=== PATIENT | female | born 1955 | race Caucasian/White ===

== ENCOUNTER 2016-10-22 15:54 | Inpatient (IN) | payer MEDICARE, MEDICAID ==
--- NOTE | 2016-10-22 18:19 | Emergency Department Record ---
History of Present Illness - General Chief complaint: Weakness Stated complaint: FATIGUE,CONFUSION,SORE JOINTS,VOMITTING, Time Seen by Provider: 10/22/16 18:04 Source: Patient Mode of Arrival: Ambulatory Limitations: No limitations - History of Present Illness Initial comments: 61 yo female presents to ED for evaluation of increased weakness and confusion over the last 24 hours. Daughter at the bedside reports that the patient has been sleeping for almost 24 hours straight. Patient reports a history of chronic abdominal pain, fibromyalgia, and depression symptoms, denies any recent change in medications. Patient denies fevers, chills, cough, abdominal pain symptoms, or urinary symptoms. MD Complaint: Generalized weakness Onset/Timin -: Days(s) Location: Generalized Consistency: Constant Improves with: None Worsens with: None Associated Symptoms: Confusion - [place] Coma Scale Eye Response: (4) Open spontaneously Motor Response: (6) Obeys commands Verbal Response: (5) Oriented [place] Total: 15 - Related Data Home Medications Medication Instructions Recorded Confirmed Last Taken Albuterol Sulfate [Ventolin Hfa] 1 - 2 puff IH QID PRN 10/22/16 10/22/16 Unknown Atorvastatin Calcium 10 mg PO DAILY 10/22/16 10/22/16 Unknown Buspirone HCl [Buspar] 30 mg PO DAILY 10/22/16 10/22/16 Unknown Dicyclomine HCl 20 mg PO TID 10/22/16 10/22/16 Unknown Diphenoxylate HCl/Atropine 1 each PO QID 10/22/16 10/22/16 Unknown [Diphenoxylate-Atrop 2.5-0.025] Diphenoxylate HCl/Atropine 1 each PO QID PRN 10/22/16 10/22/16 Unknown [Diphenoxylate-Atrop 2.5-0.025] Estradiol [Estrace] 0.5 mg PO DAILY 10/22/16 10/22/16 Unknown Fluoxetine HCl 10 mg PO DAILY 10/22/16 10/22/16 Unknown Fluoxetine HCl [Prozac] 40 mg PO DAILY 10/22/16 10/22/16 Unknown Fluticasone/Salmeterol [Advair 1 each IH BID 10/22/16 10/22/16 Unknown 500-50 Diskus] Hydrochlorothiazide 12.5 mg PO DAILY PRN 10/22/16 10/22/16 Unknown Levothyroxine Sodium [Synthroid] 125 mcg PO DAILY 10/22/16 10/22/16 Unknown Montelukast Sodium [Singulair] 10 mg PO QHS 10/22/16 10/22/16 Unknown Pregabalin [Lyrica] 150 mg PO DAILY 10/22/16 10/22/16 Unknown Trazodone HCl 100 mg PO QHS 10/22/16 10/22/16 Unknown Umeclidinium Gary [Incruse 62.5 mcg IH DAILY 10/22/16 10/22/16 Unknown Ellipta] Allergies Allergy/AdvReac Type Severity Reaction Status Date / Time clindamycin Allergy RASH Verified 10/22/16 17:43 erythromycin base Allergy HIVES Verified 10/22/16 17:43 Iodine and Iodide Containing Allergy HYPERSENSIT Verified 10/22/16 17:43 Produc IVITY nitrofurantoin Allergy DIFFICULTY Verified 10/22/16 17:44 [From Macrodantin] BREATHING sulfamethoxazole Allergy DIFFICULTY Verified 10/22/16 17:44 [From Bactrim] BREATHING trimethoprim [From Bactrim] Allergy DIFFICULTY Verified 10/22/16 17:44 BREATHING Travel Screening - Travel/Exposure Within Last 30 Days Have you traveled within the last 30 days?: No - Travel/Exposure Within Last Year Have you traveled outside the [place] in the last year?: No - Additonal Travel Details Have you been exposed to anyone with a communicable illness?: No - Travel Symptoms Symptom Screening: None Review of Systems Constitutional: Reports: Malaise, Weakness. Denies: Chills, Fever, Night sweats Eyes: Denies: Eye discharge, Eye pain ENT: Denies: Congestion, Epistaxis Respiratory: Denies: Cough, Dyspnea Cardiovascular: Denies: Chest pain, Dyspnea on exertion Endocrine: Denies: Fatigue, Heat or cold intolerance Gastrointestinal: Reports: Abdominal pain (chronic per patient). Denies: Vomiting Genitourinary: Denies: Dysuria, Frequency Musculoskeletal: Denies: Back pain Skin: Denies: Bruising, Change in color Neurological: Reports: Confusion. Denies: Abnormal gait, Headache, Numbness Psychiatric: Denies: Anxiety Hematological/Lymphatic: Denies: Anemia, Blood Clots Past Medical History - SOCIAL HISTORY Smoking Status: Never smoker Alcohol Use: None Drug Use: None - RESPIRATORY Hx Respiratory Disorders: Yes Hx COPD: Yes - CARDIOVASCULAR Hx Cardio Disorders: Yes Hx Hypertension: Yes Comment:: high cholesterol - NEURO Hx Neuro Disorders: Yes Hx Seizures: Yes (iodine related) - GI Hx GI Disorders: Yes Hx Diverticulitis: Yes Hx Ulcer: Yes Comment:: colitis - Hx Genitourinary Disorders: No - ENDOCRINE Hx Endocrine Disorders: Yes Hx Diabetes: No Hx Thyroid Disease: Yes - MUSCULOSKELETAL Hx Musculoskeletal Disorders: Yes Hx Arthritis: Yes - PSYCH Hx Psych Problems: Yes Hx Anxiety: Yes - HEMATOLOGY/ONCOLOGY Hx Hematology/Oncology Disorders: Yes Hx Anemia: Yes Family Medical History Any Significant Family History?: No Physical Exam - General General Appearance: Alert, Oriented x3, Cooperative, Moderate distress Limitations: No limitations - Head Head exam: Atraumatic, Normocephalic, Normal inspection Head exam detail: negative: Abrasion, Contusion, Sofia's sign, General tenderness, Hematoma, Laceration - Eye Eye exam: Normal appearance. negative: Conjunctival injection, Periorbital swelling, Periorbital tenderness, Scleral icterus - ENT Ear exam: negative: Auricular hematoma, Auricular trauma Nasal Exam: negative: Active bleeding, Discharge, Dried blood, Foreign body Mouth exam: negative: Drooling, Laceration, Muffled voice, Tongue elevation - Neck Neck exam: Normal inspection. negative: Meningismus, Tenderness - Respiratory Respiratory exam: Normal lung sounds bilaterally. negative: Respiratory distress, Rhonchi, Stridor, Wheezes - Cardiovascular Cardiovascular Exam: Regular rate, Normal rhythm, Normal heart sounds - GI/Abdominal GI/Abdominal exam: Soft. negative: Pulsatile mass, Rebound, Rigid, Tenderness - Rectal Rectal exam: Deferred - exam: Deferred - Extremities Extremities exam: Normal inspection. negative: Calf tenderness, Pedal edema, Tenderness - Back Back exam: Denies: CVA tenderness (R), CVA tenderness (L) - Neurological Neurological exam: Alert, CN II-XII intact, Oriented X3. negative: Motor sensory deficit - Psychiatric Psychiatric exam: Normal affect, Normal mood - Skin Skin exam: Normal color. negative: Abrasion Type of lesion: negative: abrasion Course Vital Signs 10/22/16 17:30 Temperature 98.9 F Pulse Rate 77 Respiratory 16 Rate Blood Pressure 144/73 Pulse Ox 95 - Reevaluation(s) Reevaluation #1: 10/22/16 19:12 Labs reviewed, WBC 18.7 with 85% Neurophils. Potassium 2.6, CO2 34. AST/ALT 122, 125, Alk phos 264. UA is negative for infection. CT of the Abdomen and Pelvis ordered in addition to Acetaminophen level. Reevaluation #2: 10/22/16 19:47 EKG: NSR 67 Normal axis, normal intervals Nonspecific ST chagnes III, AVF, V4-V6 Reevaluation #3: 10/22/16 20:34 CXR: ?RML infiltrate Reevaluation #4: 10/22/16 20:38 Patient and family updaetd on results thus far, awaiting CT imaging to exclude an acute process of the abdomen and pelvis before attributing symptoms to pneumonia. Reevaluation #5: 10/22/16 21:23 CT Abdomen and Pelvis: Limited by oral contrast from previous UGI study, there is dilation of the CBD with distal inflammatory changes, if concern for choledocholithiasis consider MRCP. 10/22/16 21:30 Case was discussed with Dr. Currie, CT findings are unlikely to be acute in nature. Will admit to medicine with treatment for CAP and place a consult for Dr. Waldrop tomorrow to see the patient while in hospital. Will intiate treatment with Rocephin and Zithromax with consult for Dr. Waldrop in AM. Case was discussed with Antonia Funk, will accept admission. 10/23/16 06:51 Medical Decision Making - Lab Data Result diagrams: 10/22/16 18:23 10/23/16 06:07 Disposition Disposition: Admit Clinical Impression: CAP (community acquired pneumonia), Confusion, Chronic abdominal pain, Elevated liver enzymes Disposition: Still a Patient at [facility] Decision to Admit: Admit from ER Decision to Admit Date: 10/22/16 Decision to Admit Time: 21:33 Condition: (2) Stable Time of Disposition: 21:33 Quality - Quality Measures Quality Measures: N/A - Blood Pressure Screening Blood Pressure Classification: Normal BP Reading Systolic Measurement: 104 Diastolic Measurement: 60 Screening for High Blood Pressure: < Normal BP, F/U Not Required > [G8783] Normal BP Follow-up Interventions: No follow-up required
[2016-10-22 18:42] LABS: BASO % 0.2 % (0-6); EOS % 0.8 % (0-6); HEMATOCRIT 36.1 % (35.0-47.0); HEMOGLOBIN 12.4 gm/dl (11.6-16.0); LYMPH % 8.5 % (16-45); MEAN CORPUSCULAR HEMOGLOBIN 30.2 pg (27-33); MEAN CORPUSCULAR HGB CONC 34.3 g/dl (32-36); MEAN PLATELET VOLUME 10.3 fl (7.4-10.4); MONO % 3.4 % (0-9); PLATELET COUNT 264 K/uL (130-400); RED CELL DISTRIBUTION WIDTH 14.5 % (11.5-14.5); WHITE BLOOD COUNT W/O DIFF 18.7 K/uL (4.2-12.2)
[2016-10-22 18:54] LABS: AMMONIA 11.8 umol/L (9-30); LACTIC ACID 1.4 mmol/L (0.7-2.1)
[2016-10-22 18:59] LABS: ALB/GLOB RATIO 1.2 (1.1-1.8); AST/SGOT 122 U/L (14-36); CREATININE 0.9 mg/dL (0.52-1.04); EST GLOMERULAR FILTRATION RATE > 60 ml/min; GLUCOSE,RANDOM 108 mg/dL (70-110); TOTAL PROTEIN 7.3 gm/dL (6.3-8.2)
[2016-10-22 19:00] LABS: ALKALINE PHOSPHATASE 264 U/L (38-126); ALT/SGPT 125 U/L (9-52); BLOOD UREA NITROGEN 9 mg/dL (7-17); CREATINE PHOSPHOKINASE 73 U/L (30-135)
[2016-10-22 19:05] LABS: URINE APPEARANCE SL CLOUDY; URINE BILIRUBIN NEGATIVE (NEGATIVE); URINE BLOOD NEGATIVE (NEGATIVE); URINE COLOR YELLOW; URINE GLUCOSE (UA) NEGATIVE (NEGATIVE); URINE KETONE NEGATIVE (NEGATIVE); URINE LEUKOCYTE ESTERASE NEGATIVE (NEGATIVE); URINE NITRITE NEGATIVE (NEGATIVE); URINE PROTEIN NEGATIVE (NEGATIVE); URINE UROBILINOGEN 0.2 E.U./dL (0.20 - 1.00)
[2016-10-22 19:10] LABS: CKMB 0.6 ug/L (0-6)
[2016-10-22 19:11] LABS: TROPONIN I < 0.012 ng/mL (0.00-0.034)
[2016-10-22 19:25] LABS: THYROID STIMULATING HORMONE 0.11 uIU/ml (0.465-4.68)
[2016-10-22] MEDS ORDERED: KETOROLAC 30 MG/ML VIAL IVP ONE (20:39)
[2016-10-22] MEDS ORDERED: 0.9 % SODIUM CHLORIDE 1000ML 1,000 ML IV SCH (20:45)
[2016-10-22] MEDS ORDERED: CEFTRIAXONE SODIUM 1 GM in 0.9 % SODIUM CHLORIDE 100ML 100 ML IVPB ONE (21:33)
[2016-10-22] MEDS ORDERED: AZITHROMYCIN 500 MG in 0.9 % SODIUM CHLORIDE 250ML 250 ML IVPB ONE (21:33)
[2016-10-22] MEDS ORDERED: MAGNESIUM SULFATE 16 MEQ in 0.9 % SODIUM CHLORIDE 100ML 100 ML IV ONE (22:34)
[2016-10-22] MEDS ORDERED: SOD CHLOR 0.9% WITH KCL 40MEQ 40 MEQ/1,000 ML IV.SOLN IV ONE (22:34)
[2016-10-22] MEDS: 0.9 % SODIUM CHLORIDE 1000ML 1,000 ML IV PRN (22:35)
[2016-10-22] MEDS ORDERED: MAGNESIUM SULFATE 16 MEQ in 0.9 % SODIUM CHLORIDE 100ML 100 ML IV SCH (23:15)
[2016-10-23 06:29] LABS: ALB/GLOB RATIO 1.1 (1.1-1.8); ALBUMIN 3.2 gm/dL (3.5-5.0); ALKALINE PHOSPHATASE 208 U/L (38-126); ALT/SGPT 91 U/L (9-52); AST/SGOT 71 U/L (14-36); BILIRUBIN,TOTAL 0.85 mg/dL (0.2-1.3); BLOOD UREA NITROGEN 8 mg/dL (7-17); CREATININE 0.8 mg/dL (0.52-1.04); EST GLOMERULAR FILTRATION RATE > 60 ml/min; GLUCOSE,RANDOM 99 mg/dL (70-110); TOTAL PROTEIN 6.2 gm/dL (6.3-8.2)
[2016-10-23] MEDS ORDERED: ACETAMINOPHEN 500 MG TABLET PO PRN (07:05)
--- NOTE | 2016-10-23 08:15 | RADIOLOGY REPORT ---
EXAM: CHEST, TWO VIEWS HISTORY: PATIENT HAS COUGH, VERTIGO, AND SORE THROAT TIMES TWO DAYS. TECHNIQUE: Two views of the chest were provided without comparison examinations. FINDINGS: The cardiomediastinal silhouette is within normal limits for size and contour. The deepa appear unremarkable. Within the right middle lobe, there are findings suspicious for subsegmental atelectasis and/or infiltrate. No pleural effusions are identified. No pneumothorax is noted. Contrast is noted within the large bowel. Clinical correlation for recent contrasted studies recommended. IMPRESSION: FINDINGS SUSPICIOUS FOR RIGHT MIDDLE LOBE SUBSEGMENTAL ATELECTASIS AND/OR INFILTRATE. FOLLOW-UP PA AND LATERAL VIEWS OF THE CHEST CAN BE OBTAINED UNTIL RESOLUTION OF FINDINGS. JOB NUMBER: [id number] MTDD
--- NOTE | 2016-10-23 08:19 | CT SCAN REPORT ---
EXAM: CT SCAN OF THE HEAD WITHOUT CONTRAST HISTORY: PATIENT HAS VERTIGO, SORE THROAT, AND WEAKNESS. TECHNIQUE: Serial axial CT scan of the head was performed at 2.5 mm intervals from the base of the skull to the apex without the use of intravenous contrast. Sagittal and coronal reconstructions are provided. No comparison CT's are available. FINDINGS: Mild parenchymal volume loss is noted. There is no mass or mass effect. The romero and white differentiation is within normal limits. There is no CT evidence of intra or extraaxial fluid collection to suggest bleeding. Bone windows demonstrate no CT evidence of a fracture or dislocation of the skull. The paranasal sinuses are unremarkable. IMPRESSION: NO CT EVIDENCE OF AN ACUTE INTRACRANIAL PROCESS. JOB NUMBER: [id number] MTDD
--- NOTE | 2016-10-23 08:34 | CT SCAN REPORT ---
EXAM: CT SCAN OF THE ABDOMEN AND PELVIS HISTORY: PATIENT HAS LOWER ABDOMINAL PAIN AND BLOATING. TECHNIQUE: Serial axial CT scan of the abdomen and pelvis was performed at 3.75 mm intervals from the dome of the diaphragm down to the pubic symphysis without the use of intravenous contrast. There is a significant amount of barium contrast identified within the large bowel which is from a recent upper GI examination. This barium contrast creates significant streak artifact which renders the examination close to nondiagnostic. No comparison CT's are available. FINDINGS: The lung windows of the lung bases demonstrate right middle lobe and right lower lobe linear subsegmental atelectasis and/or infiltrate. These findings may be the result of developing pneumonia. Follow-up PA and lateral views of the chest can be obtained until resolution of findings. The visualized heart size and contour is within normal limits. Small hiatal hernia is noted. Within the limits of the examination the visualized liver, spleen, pancreas, and bilateral adrenal glands are unremarkable. The gallbladder is not visualized. Postoperative changes within the gallbladder fossa are identified. The common bile duct measures approximately 12 mm in diameter in the distal aspect. There is questionable fat stranding identified surrounding the distal aspect of the common bile duct suggesting possible inflammatory process. The upper limits of normal for a post cholecystectomy patient for the common bile duct is approximately 11 mm. If there is further clinical concern then MRCP examination can be obtained for further evaluation. Within the limits of the examination there is no gross CT evidence of hydronephrosis or hydroureter. No obvious renal calculi are noted. The contour and caliber of the noncontrasted abdominal aorta is within normal limits. No gross retroperitoneal lymphadenopathy is noted. Within the limits of the examination there is no gross obvious bowel obstruction. No obvious free intraperitoneal fluid is noted. The urinary bladder is unremarkable. The uterus is absent. Bone windows demonstrate no CT evidence of a fracture or dislocation of the visualized osseous structures of the abdomen and pelvis. IMPRESSION: 1. A VERY LIMITED EXAMINATION DUE TO STREAK ARTIFACT FROM THE PATIENT'S BARIUM CONTRAST IN THE COLON. WITHIN THE LIMITS OF THE EXAMINATION THERE IS A QUESTIONABLE INFLAMMATORY PROCESS SURROUNDING THE DISTAL COMMON BILE DUCT WITH MILD DISTENTION. IF THERE IS CLINICAL CONCERN FOR CHOLEDOCHOLITHIASIS THEN AN MRCP EXAMINATION CAN BE OBTAINED FOR FURTHER EVALUATION. 2. NO OTHER OBVIOUS ACUTE INTRAABDOMINAL PROCESS IS NOTED. IF THERE IS FURTHER CLINICAL CONCERN THEN A REPEAT CT SCAN OF THE ABDOMEN AND PELVIC CAN BE OBTAINED ONCE THE BARIUM CONTRAST HAS RESOLVED. JOB NUMBER: [id number] MTDD
[2016-10-23] MEDS ORDERED: POTASSIUM CHLORIDE 20 MEQ TABLET PO ONE ×2 (09:43→09:51)
[2016-10-23] MEDS ORDERED: SOD CHLOR 0.9% WITH KCL 40MEQ 40 MEQ/1,000 ML IV.SOLN IV ONE (09:51)
[2016-10-23] MEDS: HYDROCODONE/APAP 10/325 TABLET PO PRN ×2 (11:05→20:25)
--- NOTE | 2016-10-23 13:39 | History & Physical ---
History of Present Illness - Date of Service Date of Service for History & Physical: 10/23/16 - History of Present Illness Admitting Diagnosis: CAP. Confusion. Elevated Liver Enzymes. Chronic Abdominal pain History of Present Illness: 61 y/o female with 24 hour history of increased weakness, confusion, and excessive sleepiness admitted for community-acquired pneumonia, confusion, chronic abdominal pain, elevated liver enzymes. 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 Prior to arrival had a 3-4 day history of vomiting and excessive diarrhea leading up to 24 hours prior to arrival to ED when she was brought in for sleeping for 24 hours straight, increased confusion and weakness. Patient also reports hx chronic abdominal pain, fibromyalgia, depression. She denies any fevers, cough, urinary symptoms. Reports she sees pulmonolgist Dr Vergara in [place] , last visit was 2 weeks ago where she had a " breathing test" which resulted in no changes in her breathing. While in the ED WBC 18,7, neutrophils 85%. Potassium 2.6, CO2 34. AST/ALT 122, 125, alk phos 264. TSH 0.11. Protein and albumin low. Acetaminophen < 10.0. U/A negative for infection. SPO@ 92% RA. EKG NSR. CXR possible RML infiltrate. CT abdomen/pelvis with dilation CBD, distal inflammatory changes. case was discussed with Dr Currie by ED attending and will plan on consulting Dr Waldrop in the am. CT head negative for acute intracranial process. Was afebrile upon arrival Laboratory Results WBC 18.7 K/uL (4.2-12.2) H 10/22/16 18:23 RBC 4.10 M/uL (3.80-5.40) 10/22/16 18:23 Hgb 12.4 gm/dl (11.6-16.0) 10/22/16 18: Hct 36.1 % (35.0-47.0) 10/22/16 18: MCV 88.0 fl (81-97) 10/22/16 18: MCH 30.2 pg (27-33) 10/22/16 18: MCHC 34.3 g/dl (32-36) 10/22/16 18: RDW 14.5 % (11.5-14.5) 10/22/16 18:23 Plt Count 264 K/uL (130-400) 10/22/16 18:23 MPV 10.3 fl (7.4-10.4) 10/22/16 18:23 Neutrophils % 85.0 % (47-80) H 10/22/16 18:23 Band Neutrophils % 0.0 % (0-5) 10/22/16 18:23 Lymphocytes % 8.5 % (16-45) L 10/22/16 18:23 Monocytes % 3.4 % (0-9) 10/22/16 18:23 Eosinophils % 0.8 % (0-6) 10/22/16 18:23 Basophils % 0.2 % (0-6) 10/22/16 18:23 Lymphocytes 11.0 % (16-45) L 10/22/16 18:23 Monocytes 2.0 % (0-9) 10/22/16 18:23 Basophils 0.0 % (0-6) 10/22/16 18:23 Eosinophil Count 2.0 % (0-6) 10/22/16 18:23 Sodium 140 mmol/L (136-145) 10/23/16 06:07 Potassium 2.8 mmol/L (3.5-5.1) L 10/23/16 06:07 Chloride 104 mmol/L (98-107) 10/23/16 06:07 Carbon Dioxide 30.0 mmol/L (22-30) 10/23/16 06:07 Anion Gap 6.0 (7-16) L 10/23/16 06:07 BUN 8 mg/dL (7-17) 10/23/16 06:07 Creatinine 0.8 mg/dL (0.52-1.04) 10/23/16 06:07 Estimated GFR > 60 ml/min 10/23/16 06:07 Random Glucose 99 mg/dL (70-110) 10/23/16 06:07 Lactic Acid 1.4 mmol/L (0.7-2.1) 10/22/16 18:23 Calcium 7.7 mg/dL (8.5-10.1) L 10/23/16 06:07 Total Bilirubin 0.85 mg/dL (0.2-1.3) 10/23/16 06:07 AST 71 U/L (14-36) H 10/23/16 06:07 ALT 91 U/L (9-52) H 10/23/16 06:07 Alkaline Phosphatase 208 U/L (38-126) H 10/23/16 06:07 Ammonia 11.8 umol/L (9-30) 10/22/16 18:23 Creatine Kinase 73 U/L (30-135) 10/22/16 18:23 CK-MB (CK-2) 0.6 ug/L (0-6) 10/22/16 18:23 Troponin I < 0.012 ng/mL (0.00-0.034) 10/22/16 18:23 Total Protein 6.2 gm/dL (6.3-8.2) L 10/23/16 06:07 Albumin 3.2 gm/dL (3.5-5.0) L 10/23/16 06:07 Globulin 3.0 gm/dL (1.4-4.8) 10/23/16 06:07 Albumin/Globulin Ratio 1.1 (1.1-1.8) 10/23/16 06:07 TSH 0.11 uIU/ml (0.465-4.68) L 10/22/16 18:23 Urine Color Yellow 10/22/16 19:03 Urine Appearance Sl cloudy 10/22/16 19:03 Urine pH 7.0 (5.0-8.0) 10/22/16 19:03 Ur Specific [place] <= 1.005 (1.002-1.030) 10/22/16 19:03 Urine Protein Negative (NEGATIVE) 10/22/16 19:03 Urine Glucose (UA) Negative (NEGATIVE) 10/22/16 19:03 Urine Ketones Negative (NEGATIVE) 10/22/16 19:03 Urine Blood Negative (NEGATIVE) 10/22/16 19:03 Urine Nitrite Negative (NEGATIVE) 10/22/16 19:03 Urine Bilirubin Negative (NEGATIVE) 10/22/16 19:03 Urine Urobilinogen 0.2 E.U./dL (0.20 - 1.00) 10/22/16 19:03 Ur Leukocyte Esterase Negative (NEGATIVE) 10/22/16 19:03 Acetaminophen < 10.0 ug/mL (10.0-30.0) L 10/22/16 16:45 10/23/16- resting in bed comfortably, A&O x3 but lethargic. Denies NIKITA, abdominal pain, chills. Does report she feels much better than she has in the last several days. Denies nausea, vomiting, diarrhea since admission. Reports she usually gets pneumonia twice a year PCP: Dr Gonzalez Housekeeping Director: Dr Vergara out of [place] Travel Screening - Travel/Exposure Within Last 30 Days Have you traveled within the last 30 days?: No - Travel/Exposure Within Last Year Have you traveled outside the [place] in the last year?: No - Additonal Travel Details Have you been exposed to anyone with a communicable illness?: No - Travel Symptoms Symptom Screening: None Review of Systems Constitutional: Reports: Malaise, Weakness. Denies: Chills, Fever, Night sweats Eyes: Denies: Eye discharge, Eye pain ENT: Denies: Congestion, Epistaxis Respiratory: Denies: Cough, Dyspnea Cardiovascular: Denies: Chest pain, Dyspnea on exertion Endocrine: Denies: Fatigue, Heat or cold intolerance Gastrointestinal: Reports: Abdominal pain (chronic per patient). Denies: Vomiting Genitourinary: Denies: Dysuria, Frequency Musculoskeletal: Denies: Back pain Skin: Denies: Bruising, Change in color Neurological: Reports: Confusion. Denies: Abnormal gait, Headache, Numbness Psychiatric: Denies: Anxiety Hematological/Lymphatic: Denies: Anemia, Blood Clots Past Medical History - SOCIAL HISTORY Smoking Status: Never smoker Alcohol Use: None Drug Use: None - RESPIRATORY Hx Respiratory Disorders: Yes Hx COPD: Yes - CARDIOVASCULAR Hx Cardio Disorders: Yes Hx Hypertension: Yes Comment:: high cholesterol - NEURO Hx Neuro Disorders: Yes Hx Seizures: Yes (iodine related) - GI Hx GI Disorders: Yes Hx Diverticulitis: Yes Hx Ulcer: Yes Comment:: colitis - Hx Genitourinary Disorders: No - ENDOCRINE Hx Endocrine Disorders: Yes Hx Diabetes: No Hx Thyroid Disease: Yes - MUSCULOSKELETAL Hx Musculoskeletal Disorders: Yes Hx Arthritis: Yes - PSYCH Hx Psych Problems: Yes Hx Anxiety: Yes - HEMATOLOGY/ONCOLOGY Hx Hematology/Oncology Disorders: Yes Hx Anemia: Yes Family Medical History Any Significant Family History?: No H&P Meds/Allergies - Allergies Allergies: Allergies Allergy/AdvReac Type Severity Reaction Status Date / Time clindamycin Allergy RASH Verified 10/22/16 17:43 erythromycin base Allergy HIVES Verified 10/22/16 17:43 Iodine and Iodide Containing Allergy HYPERSENSIT Verified 10/22/16 17:43 Produc IVITY nitrofurantoin Allergy DIFFICULTY Verified 10/22/16 17:44 [From Macrodantin] BREATHING sulfamethoxazole Allergy DIFFICULTY Verified 10/22/16 17:44 [From Bactrim] BREATHING trimethoprim [From Bactrim] Allergy DIFFICULTY Verified 10/22/16 17:44 BREATHING - Home Medications Home Medications Medication Instructions Recorded Confirmed Last Taken Albuterol Sulfate [Ventolin Hfa] 1 - 2 puff IH QID PRN 10/22/16 10/22/16 Unknown Atorvastatin Calcium 10 mg PO DAILY 10/22/16 10/22/16 Unknown Buspirone HCl [Buspar] 30 mg PO DAILY 10/22/16 10/22/16 Unknown Dicyclomine HCl 20 mg PO TID 10/22/16 10/22/16 Unknown Diphenoxylate HCl/Atropine 1 each PO QID 10/22/16 10/22/16 Unknown [Diphenoxylate-Atrop 2.5-0.025] Diphenoxylate HCl/Atropine 1 each PO QID PRN 10/22/16 10/22/16 Unknown [Diphenoxylate-Atrop 2.5-0.025] Estradiol [Estrace] 0.5 mg PO DAILY 10/22/16 10/22/16 Unknown Fluoxetine HCl 10 mg PO DAILY 10/22/16 10/22/16 Unknown Fluoxetine HCl [Prozac] 40 mg PO DAILY 10/22/16 10/22/16 Unknown Fluticasone/Salmeterol [Advair 1 each IH BID 10/22/16 10/22/16 Unknown 500-50 Diskus] Hydrochlorothiazide 12.5 mg PO DAILY PRN 10/22/16 10/22/16 Unknown Levothyroxine Sodium [Synthroid] 125 mcg PO DAILY 10/22/16 10/22/16 Unknown Montelukast Sodium [Singulair] 10 mg PO QHS 10/22/16 10/22/16 Unknown Pregabalin [Lyrica] 150 mg PO DAILY 10/22/16 10/22/16 Unknown Trazodone HCl 100 mg PO QHS 10/22/16 10/22/16 Unknown Umeclidinium [place] [Incruse 62.5 mcg IH DAILY 10/22/16 10/22/16 Unknown Ellipta] - Active Medications Active Medications: Current Medications Acetaminophen (Tylenol 500mg Tab) 1,000 mg PO Q6H PRN PRN Reason: Pain - Moderate (5-7) Last Admin: 10/23/16 07:18 Dose: 1,000 mg Hydrocodone Bitart/Acetaminophen ([place] 10mg/325mg) 1 each PO Q6H PRN PRN Reason: Pain - Moderate (5-7) Last Admin: 10/23/16 11:05 Dose: 1 each Sodium Chloride () 1,000 mls @ 125 mls/hr IV .Q8H PRN PRN Reason: LARGE VOLUME IV Last Infusion: 10/23/16 00:30 Dose: Infused Azithromycin 500 mg/ Sodium (Chloride) 250 mls @ 250 mls/hr IVPB Q24H SANDEEP Stop: 10/28/16 21:01 Ceftriaxone Sodium 1 gm/ (Sodium Chloride) 100 mls @ 100 mls/hr IVPB Q24H SANDEEP Stop: 10/28/16 22:01 Magnesium Sulfate 16 meq/ (Sodium Chloride) 104 mls @ 100 mls/hr IV NOW SANDEEP Last Admin: 10/22/16 23:39 Dose: 100 mls/hr Potassium Chloride/Sodium Chloride (Potassium Chl 40meq/) 40 meq in 1,000 mls @ 100 mls/hr IV NOW ONE Stop: 10/23/16 19:50 Last Admin: 10/23/16 09:57 Dose: 100 mls/hr Physical Exam - Vital Signs Vital Signs: Vital Signs - Last 24 Hrs Temp Pulse Pulse Resp BP BP Pulse Ox 10/23/16 10:00 97.3 F L 64 16 131/70 95 10/23/16 09:00 64 16 10/23/16 06:00 98.8 F 69 16 138/70 92 L 10/23/16 02:08 98.6 F 63 18 120/60 92 L 10/22/16 22:34 97.9 F 68 18 139/88 97 10/22/16 22:33 98.6 F 64 18 104/60 94 L - General General Appearance: Alert, Oriented x3, Cooperative Limitations: No limitations, Other (lethargic but easily arousable) - Head Head exam: Atraumatic, Normocephalic, Normal inspection Head exam detail: negative: Abrasion, Contusion, Sofia's sign, General tenderness, Hematoma, Laceration - Eye Eye exam: Normal appearance. negative: Conjunctival injection, Periorbital swelling, Periorbital tenderness, Scleral icterus - ENT Ear exam: negative: Auricular hematoma, Auricular trauma Nasal Exam: negative: Active bleeding, Discharge, Dried blood, Foreign body Mouth exam: negative: Drooling, Laceration, Muffled voice, Tongue elevation - Neck Neck exam: Normal inspection. negative: Meningismus, Tenderness - Respiratory Respiratory exam: Decreased breath sounds. negative: Respiratory distress, Rhonchi, Stridor, Wheezes (right lower lobe) - Cardiovascular Cardiovascular Exam: Regular rate, Normal rhythm, Normal heart sounds Peripheral Pulses: 2+: Dorsalis Pedis (R) - GI/Abdominal GI/Abdominal exam: Soft, Normal bowel sounds. negative: Pulsatile mass, Rebound , Rigid, Tenderness - Rectal Rectal exam: Deferred - exam: Deferred - Extremities Extremities exam: Normal inspection. negative: Calf tenderness, Pedal edema, Tenderness - Back Back exam: Denies: CVA tenderness (R), CVA tenderness (L) - Neurological Neurological exam: Alert, CN II-XII intact, Oriented X3. negative: Motor sensory deficit - Psychiatric Psychiatric exam: Normal affect, Normal mood - Skin Skin exam: Normal color. negative: Abrasion Type of lesion: negative: abrasion Results - Labs Result Diagrams: 10/22/16 18:23 10/23/16 06:07 Labs Last 24 Hours: Laboratory Results - last 24 hr 10/23/16 06:07 Sodium 140 Potassium 2.8 L Chloride 104 Carbon Dioxide 30.0 Anion Gap 6.0 L BUN 8 Creatinine 0.8 Estimated GFR > 60 Random Glucose 99 Calcium 7.7 L Total Bilirubin 0.85 AST 71 H ALT 91 H Alkaline Phosphatase 208 H Total Protein 6.2 L Albumin 3.2 L Globulin 3.0 Albumin/Globulin Ratio 1.1 - Imaging and Cardiology CT scan - abdomen Status: Report reviewed (1- limited due to streak artifact from previous barium contrast study, 2- questionable inflammatory process surrounding distal common bile duct with mild destention) CT scan - head Status: Report reviewed (no acute intracranial process) Chest x-ray Status: Pending (findings suspicious for RML atelectasis and/or pneumonia) VTE H&P Assessment - Risk for VTE Risk for VTE: Yes Risk Level: Moderate Risk Assessment Date: 10/23/16 Risk Assessment Time: 13:49 VTE Orders Placed or Will Be Placed: Yes Plan - Inpatient Certification Inpatient Certification: Admit to inpatient care: Based on my medical assessment, after consideration of patient's risk factors (age, co-morbidities and patient presenting symptoms and acuity), I expect that this patient will remain in the hospital greater than or equal to two midnights and that the services needed warrant inpatient care because: Patient Risk Factors: [] Estimated length of stay: [] The patient may reasonably be expected to be discharged or transferred to a hospital within 96 hours after admission to [facility]. Services needed: [] Post hospital care (if known): [] I certify that my determination is in accordance with my understanding of Medicare requirements for reasonable and necessary inpatient services. - Detailed Diagnosis and Plan (1) CAP (community acquired pneumonia) Current Visit: Yes Status: Acute Base Code: J18.9 - PNEUMONIA, UNSPECIFIED ORGANISM Comment: 61 y/o female admitted with RML CA-pneumonia. Known history COPD. In ED WBC 18.7, neutrophils 85%. Potassium 2.6 up to 2.8 this am after initiation of 0.9% NS with 40mEq potassium near the end of 1L bag. Is asymptomatic, telemetry remains NSR. Azithromycin 500mg and Rocephin 1gm initiated in ED - Azithromycin 250mg QD - Rocephin 1gm QD - Duoneb Q 4 hours WA - Albuterol Q 2 hrs PRN - Solumedrol 60mg QD - ABGs today to assess CO2 status and continued lethargy - CBC/CMP in am (2) Hypokalemia Current Visit: Yes Status: Acute Base Code: E87.6 - HYPOKALEMIA Comment: - Potassium 2.6 in ED, 2.8 this am. Likely due to GI loss. - K-dur 20mEq now - continue 0.9% NS with 40mEq potassium at 100ml/hr - recheck serum potassium 1500 today - Plan on converting to oral supplementation after 1500 draw (3) Chronic abdominal pain Current Visit: Yes Status: Acute Base Code: R10.9 - UNSPECIFIED ABDOMINAL PAIN; G89.29 - OTHER CHRONIC PAIN Comment: 10/23/16- chronic abdominal pain. CT abdomen/pelvis with CBD dilation and inflammation. Limited view due to recent contrast from barium study. Liver enzymes elevated, acetaminophen level < 10.0. - Dr Waldrop consult today- no new changes, follow up as outpatient - Repeat CMP in am - abdominal pain may be associated with pneumonia (4) Confusion Current Visit: Yes Status: Acute Base Code: R41.0 - DISORIENTATION, UNSPECIFIED Comment: 10/23/16- confustion resolved. Likely etology infectious in nature. Santosh check ABG r/o CO2 retention. Ammonia level normal in ED (5) Elevated liver enzymes Current Visit: Yes Status: Acute Base Code: R74.8 - ABNORMAL LEVELS OF OTHER SERUM ENZYMES Comment: 10/23/16- CT abdomen/pelvis complete. CBD dilation and inflammatoin. Dr Waldrop consulted with no new recommendations. Will need to follow up with PCP after discharge. (6) Full code status Current Visit: Yes Status: Acute Base Code: Z78.9 - OTHER SPECIFIED HEALTH STATUS Comment: 10/23/16- will remain full code during this hospitalization (7) DVT prophylaxis Current Visit: Yes Status: Acute Base Code: [id number] - Comment: 10/23/16- lovenox 40mg QD, nursing to encourage frequent ambulation
[2016-10-23] MEDS ORDERED: ALBUTEROL SULFATE (0.083%) 2.5 MG/3 ML NEB INH PRN (13:40)
[2016-10-23] MEDS ORDERED: METHYLPREDNISOLONE PF 125MG/VIAL IVP SCH (13:45)
[2016-10-23 14:10] LABS: ARTERIAL BLD GAS O2 SATURATION 97.5 % (95-98); ARTERIAL BLOOD GAS BASE EXCESS 1.9 mmol/L (-2 - 3); ARTERIAL BLOOD GAS HCO3 25.1 mmol/L (18-23); ARTERIAL BLOOD GAS PCO2 36.1 mmHg (35-48); ARTERIAL BLOOD GAS pH 7.46 (7.35-7.45); CARBOXYHEMOGLOBIN 1.4 % (0-1.5); METHEMOGLOBIN 0.1 % (0.0-1.5); TOTAL HEMOGLOBIN 12.4 g/dl (11.6-16)
[2016-10-23 14:13] LABS: ALLEN TEST PASS
[2016-10-23] MEDS: IPRATROPIUM/ALBUTEROL (0.5MG/3MG) NEB INH SCH ×3 (14:36→21:16)
[2016-10-23] MEDS ORDERED: HYDROCHLOROTHIAZIDE 12.5 MG CAPSULE PO PRN (15:18)
[2016-10-23] MEDS ORDERED: DICYCLOMINE HCL 10 MG CAPSULE PO PRN (15:18)
[2016-10-23] MEDS ORDERED: PREGABALIN (LYRICA) 100MG CAPSULE PO ONE (15:38)
[2016-10-23] MEDS: BUSPIRONE 5 MG TABLET PO SCH (15:40)
[2016-10-23] MEDS: PREGABALIN (LYRICA) 100MG CAPSULE PO SCH (15:42)
[2016-10-23] MEDS: PREGABALIN 50 MG CAPSULE PO SCH (15:42)
[2016-10-23] MEDS: FLUOXETINE HCL 20 MG CAPSULE PO SCH (15:44)
[2016-10-23] MEDS: FLUOXETINE HCL 10 MG CAPSULE PO SCH (15:45)
[2016-10-23] MEDS ORDERED: 0.9 % SODIUM CHLORIDE 1000ML 1,000 ML IV PRN (16:56)
[2016-10-23] MEDS ORDERED: AZITHROMYCIN 500 MG in 0.9 % SODIUM CHLORIDE 250ML 250 ML IVPB SCH (21:00)
[2016-10-23] MEDS ORDERED: ATORVASTATIN 20 MG TABLET PO SCH (22:00)
[2016-10-23] MEDS ORDERED: CEFTRIAXONE SODIUM 1 GM in 0.9 % SODIUM CHLORIDE 100ML 100 ML IVPB SCH (22:00)
[2016-10-23] MEDS ORDERED: MONTELUKAST SODIUM 10MG TABLET PO SCH (22:00)
[2016-10-23] MEDS ORDERED: TRAZODONE 50 MG TABLET PO SCH (22:00)
[2016-10-23] MEDS: POTASSIUM CHLORIDE 10 MEQ TAB PO SCH (22:02)
[2016-10-24] MEDS: HYDROCODONE/APAP 10/325 TABLET PO PRN (02:54)
[2016-10-24] MEDS: 0.9 % SODIUM CHLORIDE 1000ML 1,000 ML IV PRN (05:00)
[2016-10-24] MEDS: IPRATROPIUM/ALBUTEROL (0.5MG/3MG) NEB INH SCH ×3 (06:12→14:12)
[2016-10-24 06:43] LABS: HEMOGLOBIN 11.3 gm/dl (11.6-16.0); MEAN CELL VOLUME 90.2 fl (81-97); MEAN CORPUSCULAR HGB CONC 33.2 g/dl (32-36); MEAN PLATELET VOLUME 10.4 fl (7.4-10.4); PLATELET COUNT 223 K/uL (130-400); RED BLOOD COUNT 3.77 M/uL (3.80-5.40); RED CELL DISTRIBUTION WIDTH 14.7 % (11.5-14.5); WHITE BLOOD COUNT W/O DIFF 10.8 K/uL (4.2-12.2)
[2016-10-24 06:50] LABS: MEAN CORPUSCULAR HEMOGLOBIN 29.9 pg (27-33)
[2016-10-24 06:52] LABS: ALB/GLOB RATIO 1.1 (1.1-1.8); ALBUMIN 3.3 gm/dL (3.5-5.0); ALKALINE PHOSPHATASE 189 U/L (38-126); ALT/SGPT 77 U/L (9-52); ANION GAP 9.8 (7-16); AST/SGOT 38 U/L (14-36); BILIRUBIN,TOTAL 0.63 mg/dL (0.2-1.3); BLOOD UREA NITROGEN 7 mg/dL (7-17); CARBON DIOXIDE 25.2 mmol/L (22-30); CREATININE 0.7 mg/dL (0.52-1.04); EST GLOMERULAR FILTRATION RATE > 60 ml/min; GLUCOSE,RANDOM 127 mg/dL (70-110); TOTAL PROTEIN 6.4 gm/dL (6.3-8.2)
[2016-10-24] MEDS ORDERED: LEVOTHYROXINE SODIUM 125 MCG TABLET PO SCH (07:00)
[2016-10-24] MEDS: BUSPIRONE 5 MG TABLET PO SCH (09:41)
[2016-10-24] MEDS: POTASSIUM CHLORIDE 10 MEQ TAB PO SCH (09:42)
[2016-10-24] MEDS: PREGABALIN (LYRICA) 100MG CAPSULE PO SCH (09:43)
[2016-10-24] MEDS: PREGABALIN 50 MG CAPSULE PO SCH (09:43)
[2016-10-24] MEDS: FLUOXETINE HCL 20 MG CAPSULE PO SCH (09:43)
[2016-10-24] MEDS: FLUOXETINE HCL 10 MG CAPSULE PO SCH (09:44)
[2016-10-24] MEDS ORDERED: ENOXAPARIN 40 MG/0.4 ML SYR SQ SCH (10:00)
--- NOTE | 2016-10-24 11:03 | Discharge Summary ---
Providers Discharge Summary Date: 10/24/16 Date of admission: 10/22/16 22:24 Expected Date of Discharge: 10/24/16 Attending physician: TANGELA PAEZ Physical Exam - Vital Signs Vital Signs: Vital Signs - Last 24 Hrs Temp Pulse Pulse Resp BP Pulse Ox 10/24/16 09:31 67 15 100 10/24/16 07:00 63 16 112/63 95 10/24/16 06:12 60 18 100 10/24/16 02:45 97.7 F 66 18 129/77 95 10/23/16 21:16 68 18 100 10/23/16 21:12 97.8 F 65 18 132/72 95 10/23/16 18:33 95 10/23/16 18:32 87 17 95 10/23/16 17:25 97.2 F L 58 L 16 131/73 95 10/23/16 14:35 66 16 99 10/23/16 14:00 97.9 F 63 16 111/52 96 - General General Appearance: Alert, Oriented x3, Cooperative, No acute distress Limitations: No limitations - Head Head exam: Atraumatic, Normocephalic, Normal inspection Head exam detail: negative: Abrasion, Contusion, Sofia's sign, General tenderness, Hematoma, Laceration - Eye Eye exam: Normal appearance. negative: Conjunctival injection, Periorbital swelling, Periorbital tenderness, Scleral icterus - ENT Ear exam: negative: Auricular hematoma, Auricular trauma Nasal Exam: negative: Active bleeding, Discharge, Dried blood, Foreign body Mouth exam: negative: Drooling, Laceration, Muffled voice, Tongue elevation - Neck Neck exam: Normal inspection. negative: Meningismus, Tenderness - Respiratory Respiratory exam: Decreased breath sounds (throughout). negative: Respiratory distress, Rhonchi, Stridor, Wheezes - Cardiovascular Cardiovascular Exam: Regular rate, Normal rhythm, Normal heart sounds Peripheral Pulses: 2+: Dorsalis Pedis (R) - GI/Abdominal GI/Abdominal exam: Soft, Normal bowel sounds. negative: Pulsatile mass, Rebound , Rigid, Tenderness - Rectal Rectal exam: Deferred - exam: Deferred - Extremities Extremities exam: Normal inspection. negative: Calf tenderness, Pedal edema, Tenderness - Back Back exam: Denies: CVA tenderness (R), CVA tenderness (L) - Neurological Neurological exam: Alert, CN II-XII intact, Oriented X3. negative: Motor sensory deficit - Psychiatric Psychiatric exam: Normal affect, Normal mood - Skin Skin exam: Normal color. negative: Abrasion Type of lesion: negative: abrasion Hospitalization - Hospitalization Admission Diagnosis: CAP. Confusion. Elevated Liver Enzymes. Chronic Abdominal pain - Problem List/Discharge Diagnosis (1) CAP (community acquired pneumonia) Status: Acute Base Code: J18.9 - PNEUMONIA, UNSPECIFIED ORGANISM Comment: - Improving clinically with resolution of shortness of breath. 97% on room air. RML pneumonia with Known history COPD. WBC count downt o 10.8 from 18.7 while in the ED following >24h of abx. patient is afebrile. -will plan to discharge home today with continued oral abx. -patient has follow up wtih PCP in 2 days -continue Azithromycin 250mg QD x2 more days -transition to cefdinir 300mg PO q12H for 7 more days (total 10 day course) -continue albuterol inhaler 1-2 puffs q4H prn sob (2) Chronic abdominal pain Status: Acute Base Code: R10.9 - UNSPECIFIED ABDOMINAL PAIN; G89.29 - OTHER CHRONIC PAIN Comment: 10/24/16- chronic abdominal pain. CT abdomen/pelvis with CBD dilation and inflammation s/p cholecystectomy. Limited view due to recent contrast from barium study ordered by pcp. Liver enzymes elevated but continue to trend downward. - Dr Waldrop was consulted and recommended MRCP as outpatient if pain continued. -patient has follow up with pcp Dr. Gonzalez in 2 days. (3) Hypokalemia Status: Acute Base Code: E87.6 - HYPOKALEMIA Comment: 10/24/16- resolved. potassium up to 3.8 today with GI loss likely cause. Diarrhea has resolved and do not feel she will need further supplementation. -will have her recheck CMP as outpatient in 2-3 days with pcp follow up as scheduled on 10/26 (4) DVT prophylaxis Status: Acute Base Code: [id number] - Comment: 10/24/16- lovenox 40mg QD, nursing to encourage frequent ambulation (5) Full code status Status: Acute Base Code: Z78.9 - OTHER SPECIFIED HEALTH STATUS Comment: 10/24- will remain full code during this hospitalization - Hospitalization Course Disposition: Home, Self-Care Hospital Course: 61 y/o female with 24 hour history of increased weakness, confusion, and excessive sleepiness admitted for community-acquired pneumonia, confusion, chronic abdominal pain, elevated liver enzymes. 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 Prior to arrival had a 3-4 day history of vomiting and excessive diarrhea leading up to 24 hours prior to arrival to ED when she was brought in for sleeping for 24 hours straight, increased confusion and weakness. Patient also reports hx chronic abdominal pain, fibromyalgia, depression. She denies any fevers, cough, urinary symptoms. Reports she sees pulmonolgist Dr Vergara in [place] , last visit was 2 weeks ago where she had a " breathing test" which resulted in no changes in her breathing. While in the ED WBC 18,7, neutrophils 85%. Potassium 2.6, CO2 34. AST/ALT 122, 125, alk phos 264. TSH 0.11. Protein and albumin low. Acetaminophen < 10.0. U/A negative for infection. SPO@ 92% RA. EKG NSR. CXR possible RML infiltrate. CT abdomen/pelvis with dilation CBD, distal inflammatory changes. case was discussed with Dr Currie by ED attending and will plan on consulting Dr Waldrop in the am. CT head negative for acute intracranial process. Was afebrile upon arrival Laboratory Results WBC 18.7 K/uL (4.2-12.2) H 10/22/16 18: RBC 4.10 M/uL (3.80-5.40) 10/22/16 18:23 Hgb 12.4 gm/dl (11.6-16.0) 10/22/16 18: Hct 36.1 % (35.0-47.0) 10/22/16 18: MCV 88.0 fl (81-97) 10/22/16 18: MCH 30.2 pg (27-33) 10/22/16 18: MCHC 34.3 g/dl (32-36) 10/22/16 18: RDW 14.5 % (11.5-14.5) 10/22/16 18: Plt Count 264 K/uL (130-400) 10/22/16 18:23 MPV 10.3 fl (7.4-10.4) 10/22/16 18:23 Neutrophils % 85.0 % (47-80) H 10/22/16 18:23 Band Neutrophils % 0.0 % (0-5) 10/22/16 18:23 Lymphocytes % 8.5 % (16-45) L 10/22/16 18:23 Monocytes % 3.4 % (0-9) 10/22/16 18:23 Eosinophils % 0.8 % (0-6) 10/22/16 18:23 Basophils % 0.2 % (0-6) 10/22/16 18:23 Lymphocytes 11.0 % (16-45) L 10/22/16 18:23 Monocytes 2.0 % (0-9) 10/22/16 18:23 Basophils 0.0 % (0-6) 10/22/16 18:23 Eosinophil Count 2.0 % (0-6) 10/22/16 18:23 Sodium 140 mmol/L (136-145) 10/23/16 06:07 Potassium 2.8 mmol/L (3.5-5.1) L 10/23/16 06:07 Chloride 104 mmol/L (98-107) 10/23/16 06:07 Carbon Dioxide 30.0 mmol/L (22-30) 10/23/16 06:07 Anion Gap 6.0 (7-16) L 10/23/16 06:07 BUN 8 mg/dL (7-17) 10/23/16 06:07 Creatinine 0.8 mg/dL (0.52-1.04) 10/23/16 06:07 Estimated GFR > 60 ml/min 10/23/16 06:07 Random Glucose 99 mg/dL (70-110) 10/23/16 06:07 Lactic Acid 1.4 mmol/L (0.7-2.1) 10/22/16 18:23 Calcium 7.7 mg/dL (8.5-10.1) L 10/23/16 06:07 Total Bilirubin 0.85 mg/dL (0.2-1.3) 10/23/16 06:07 AST 71 U/L (14-36) H 10/23/16 06:07 ALT 91 U/L (9-52) H 10/23/16 06:07 Alkaline Phosphatase 208 U/L (38-126) H 10/23/16 06:07 Ammonia 11.8 umol/L (9-30) 10/22/16 18:23 Creatine Kinase 73 U/L (30-135) 10/22/16 18:23 CK-MB (CK-2) 0.6 ug/L (0-6) 10/22/16 18:23 Troponin I < 0.012 ng/mL (0.00-0.034) 10/22/16 18:23 Total Protein 6.2 gm/dL (6.3-8.2) L 10/23/16 06:07 Albumin 3.2 gm/dL (3.5-5.0) L 10/23/16 06:07 Globulin 3.0 gm/dL (1.4-4.8) 10/23/16 06:07 Albumin/Globulin Ratio 1.1 (1.1-1.8) 10/23/16 06:07 TSH 0.11 uIU/ml (0.465-4.68) L 10/22/16 18:23 Urine Color Yellow 10/22/16 19:03 Urine Appearance Sl cloudy 10/22/16 19:03 Urine pH 7.0 (5.0-8.0) 10/22/16 19:03 Ur Specific [place] <= 1.005 (1.002-1.030) 10/22/16 19:03 Urine Protein Negative (NEGATIVE) 10/22/16 19:03 Urine Glucose (UA) Negative (NEGATIVE) 10/22/16 19:03 Urine Ketones Negative (NEGATIVE) 10/22/16 19:03 Urine Blood Negative (NEGATIVE) 10/22/16 19:03 Urine Nitrite Negative (NEGATIVE) 10/22/16 19:03 Urine Bilirubin Negative (NEGATIVE) 10/22/16 19:03 Urine Urobilinogen 0.2 E.U./dL (0.20 - 1.00) 10/22/16 19:03 Ur Leukocyte Esterase Negative (NEGATIVE) 10/22/16 19:03 Acetaminophen < 10.0 ug/mL (10.0-30.0) L 10/22/16 16:45 10/23/16- resting in bed comfortably, A&O x3 but lethargic. Denies NIKITA, abdominal pain, chills. Does report she feels much better than she has in the last several days. Denies nausea, vomiting, diarrhea since admission. Reports she usually gets pneumonia twice a year 10/24/16- Patient states she is feeing much better today. she is feeling ready to go home. She denies shortness of breath or difficulty in breathing. She states she has been working with her pcp, Dr. Gonzalez for work up of her chronic, intermittent abdominal pain and they have a follow up on 10/26/16. She denies fever, chills, nausea, vomiting or diarrhea. Abnormal Labs: Abnormal Lab Results 10/23/16 10/23/16 10/24/16 Range/Units 06:07 13:55 06:30 RBC 3.77 L (3.80-5.40) M/uL Hgb 11.3 L (11.6-16.0) gm/dl Hct 34.0 L (35.0-47.0) % RDW 14.7 H (11.5-14.5) % Neutrophils % 88.0 H (47-80) % Lymphocytes 10.0 L (16-45) % pO2 118.0 H (83-108) mmHg HCO3 25.1 H (18-23) mmol/L ABG pH 7.46 H (7.35-7.45) Potassium 2.8 L (3.5-5.1) mmol/L Anion Gap 6.0 L (7-16) Random Glucose (70-110) mg/dL Calcium 7.7 L (8.5-10.1) mg/dL AST 71 H (14-36) U/L ALT 91 H (9-52) U/L Alkaline Phosphatase 208 H (38-126) U/L Total Protein 6.2 L (6.3-8.2) gm/dL Albumin 3.2 L (3.5-5.0) gm/dL 10/24/16 Range/Units 06:30 RBC (3.80-5.40) M/uL Hgb (11.6-16.0) gm/dl Hct (35.0-47.0) % RDW (11.5-14.5) % Neutrophils % (47-80) % Lymphocytes (16-45) % pO2 (83-108) mmHg HCO3 (18-23) mmol/L ABG pH (7.35-7.45) Potassium (3.5-5.1) mmol/L Anion Gap (7-16) Random Glucose 127 H (70-110) mg/dL Calcium 8.2 L (8.5-10.1) mg/dL AST 38 H (14-36) U/L ALT 77 H (9-52) U/L Alkaline Phosphatase 189 H (38-126) U/L Total Protein (6.3-8.2) gm/dL Albumin 3.3 L (3.5-5.0) gm/dL Condition at Discharge: (2) Stable Discharge Medications - Discharge Medications Prescriptions: Cefdinir 300 mg PO Q12HR #15 capsule Azithromycin 250 mg PO DAILY #2 tablet Home Medications: Ambulatory Orders Albuterol Sulfate [Ventolin Hfa] 1 - 2 puff IH QID PRN 10/22/16 [Last Taken Unknown] Atorvastatin Calcium 10 mg PO DAILY 10/22/16 [Last Taken Unknown] Buspirone HCl [Buspar] 30 mg PO DAILY 10/22/16 [Last Taken Unknown] Dicyclomine HCl 20 mg PO TID 10/22/16 [Last Taken Unknown] Diphenoxylate HCl/Atropine [Diphenoxylate-Atrop 2.5-0.025] 1 each PO QID [Last Taken Unknown] Diphenoxylate HCl/Atropine [Diphenoxylate-Atrop 2.5-0.025] 1 each PO QID PRN [Last Taken Unknown] Estradiol [Estrace] 0.5 mg PO DAILY 10/22/16 [Last Taken Unknown] Fluoxetine HCl 10 mg PO DAILY 10/22/16 [Last Taken Unknown] Fluoxetine HCl [Prozac] 40 mg PO DAILY 10/22/16 [Last Taken Unknown] Fluticasone/Salmeterol [Advair 500-50 Diskus] 1 each IH BID 10/22/16 [Last Taken Unknown] Hydrochlorothiazide 12.5 mg PO DAILY PRN 10/22/16 [Last Taken Unknown] Levothyroxine Sodium [Synthroid] 125 mcg PO DAILY 10/22/16 [Last Taken Unknown] Montelukast Sodium [Singulair] 10 mg PO QHS 10/22/16 [Last Taken Unknown] Pregabalin [Lyrica] 150 mg PO DAILY 10/22/16 [Last Taken Unknown] Trazodone HCl 100 mg PO QHS 10/22/16 [Last Taken Unknown] Umeclidinium Belsano [Incruse Ellipta] 62.5 mcg IH DAILY 10/22/16 [Last Taken Unknown] Azithromycin 250 mg PO DAILY #2 tablet 10/24/16 [Last Taken Unknown] Cefdinir 300 mg PO Q12HR #15 capsule 10/24/16 [Last Taken Unknown] Discharge Plan - Discharge Instructions Activity at Discharge: Resume Usual Activities As Tolerated Diet at Discharge: Regular Diet Instructions: Azithromycin (By mouth), Cefdinir (By mouth), Community Acquired Pneumonia (DC) Additional Instructions: 2 Activity: Resume Usual Activities As Tolerated 2 Diet: Regular Diet 2 Consults: [] 2 Follow Up: [] 2 Dressing/Wound Care: (Type) (Change) 2 Additional: [] Follow up with Dr. Gonzalez on 10/26/16 as scheduled Continue azithromycin 250mg by mouth daily for 2 more days starting tomorrow Continue cefdinir 300mg by mouth twice daily for 7 more days starting this evening Please call with any questions or concerns Return to ED for any new or worsening symptoms
[2016-10-24] MEDS ORDERED: FLUCONAZOLE 100 MG TABLET PO ONE (13:43)
--- NOTE | 2016-10-24 14:50 | Medical Records Consult ---
DATE: 10/23/2016 REASON FOR CONSULTATION: Abdominal pain. HISTORY OF PRESENT ILLNESS: The patient is a 61-year-old female who was admitted yesterday for what she describes as sleeping too much. She states that she had been sleeping for about 20 years, and this concerned her family. Therefore, they did bring her to the ER. During the course of the workup, she did complain of some abdominal pain. Upon questioning her, she states this has been present for about 10-15 years. She states that this happens on a daily basis with daily nausea and occasional vomiting. Despite her nausea and vomiting , she states she has gained about 50-60 pounds in the last 4 years because she eats too many sweets. During the course of her ER stay, labs were drawn that did show 18,000 white blood cell count. A CT scan of the abdomen and pelvis was done that did show some possible mild inflammation of her distal common bile duct. There was some artifact secondary to contrast in her colon. She states that over the last 10-15 years with this abdominal pain, she has undergone multiple upper endoscopies. She has had colonoscopy. She has had laparoscopic cholecystectomy all of which have been essentially normal. PAST MEDICAL HISTORY: Significant for COPD, depression, anxiety, hypothyroidism , fibromyalgia. PAST SURGICAL HISTORY: Laparoscopic cholecystectomy, upper and lower endoscopy. CURRENT MEDICATIONS: 1. Dicyclomine. 2. Estrace. 3. Prozac. 4. Advair. 5. Synthroid. 6. Singulair. 7. Lyrica. 8. Trazodone. 9. Multiple inhalers. ALLERGIES: CLEOCIN, ERYTHROMYCIN, BACTRAM. SOCIAL HISTORY: She does smoke cigarettes. Denies any alcohol usage. PHYSICAL EXAMINATION: VITAL SIGNS: Stable. She is afebrile. HEART: Regular rate and rhythm. LUNGS: Clear. ABDOMEN: Soft, obese, nontender. Bowel sounds are noted. She has port site scars noted. EXTREMITIES: No trace of edema. IMAGING STUDIES: I did review her imaging studies. CT scan of the head is normal. Chest x-ray showed possible right middle lobe infiltrate. CT scan as noted above. LABORATORY DATA: Her transaminases which were slightly elevated yesterday have come down to almost a normal range. Her bilirubin level is normal. Her CBC is pending. IMPRESSION: Abdominal pain of unknown clear etiology. She did have what appears to be some mild inflammation of her distal common bile duct on CT but there was artifact involved as well. She is going to go back and see her family doctor. An MRCP may be warranted, although her bilirubin level has always been normal. At this point, she has no acute surgical issues. She will follow up back in [place] where she lives with her family doctor later this week. CC: Dr. Kristie LUI
== END 2016-10-24 14:00 | disposition home or self-care (01) | DRG 195 ==
LOC: ER 15:54 → MEDSURG 22:24
PROVIDERS: ADMIT Family Medicine; ATTEND Family Medicine
DX: J18.9 Pneumonia, unspecified organism (principal); E87.6 Hypokalemia; R10.9 Unspecified abdominal pain; R41.0 Disorientation, unspecified; R74.8 Abnormal levels of other serum enzymes; Z78.9 Other specified health status; J44.9 Chronic obstructive pulmonary disease, unspecified; E78.00 Pure hypercholesterolemia, unspecified; E03.9 Hypothyroidism, unspecified; M79.7 Fibromyalgia; Z79.899 Other long term (current) drug therapy
CPT/HCPCS: 93041; 99285 ×2; 96365; 96375; 82550; 83605; 82140; 82553; 84484; 80053; 81003; 84443; 85027; 71020; 70450; 74176; 93005; 93010; G0480; J1885; 36600; 80329; 82375; 82803; 84132; 87040; 99223; 99233; 99239; J0456; J1650; J2930; J7030; J7050